=== PATIENT | female | born 1945 | race Caucasian/White ===

== ENCOUNTER 2016-05-22 11:40 | Emergency (ER) | payer MEDICARE, BC ==
[~2016-05-22] VITALS: Ht 160 cm; Wt 84.1 kg
[~2016-05-22 11:40] MED LIST: ALBU6.7H INH; CHOL100055; FLUT16SP EA NOSTRIL; FLUT1DIS3 ORAL INH; FLUT1DIS31 INH; LEVO125T9 PO; LUTE20CA12; MAGN400C PO; MONT10TA25 PO; PRED50TA PO; SELE200T27; SULF1TAB42 PO
[2016-05-22 11:43] VITALS: Ht 160 cm; Wt 84.1 kg
--- OUTSIDE RECORDS SUMMARY | 2016-05-22 11:45 | XMS REPORT | Continuity of Care Document ---
Author Author [facility] Organization [facility] Address Unknown Phone Unavailable Support Name Relationship Address Phone DORA HILL DO Caregiver [facility] [address] [place] [address] [phone] ABBY HUTCHISON MD Caregiver [address] [place] [address] [place] [phone] [address] Next Of Kin [address] [place] [address] Insurance Providers Payer Name Policy Number Subscriber Name Relationship Medicare [id number] Erma Koenig 18 Self [facility] [id number] Erma Koenig 18 Self Advance Directives Directive Response Recorded Date/Time Advanced Directives Type None 04/22/14 1:12pm Problems Medical Problems Problem Onset Date Status Asthma not otherwise specified with (Acute) Exacerbation 07/16/2010 Active ASTHMA NOS W (AC) EXAC Unknown Active Gastroesophageal reflux disease 07/16/2010 Active Gastroesophageal reflux disease Unknown Active Benign essential hypertension 07/16/2010 Active Benign essential hypertension Unknown Active Chronic back pain 07/16/2010 Active Chronic back pain Unknown Active Severe persistent asthma 07/16/2010 Active Severe persistent asthma Unknown Active Acute meniscal tear of right knee 09/18/2013 Active Gout flare Unknown Active Gout flare Unknown Active Medications Medication Dose Route Sig Days/Qty Instructions Order Date Discontinued Date Status Albuterol 17 Gm IH NEEDED 10/28/08 07/15/10 Discontinued Propoxyphene/Acetaminophen 1 Tab PO DAILY 10/28/08 07/15/10 Discontinued Omeprazole Magnesium 20 Mg PO DAILY 10/28/08 07/15/10 Discontinued Acetaminophen 325 Mg PO NEEDED 10/28/08 07/15/10 Discontinued Enalapril Maleate 20 Mg PO DAILY 10/28/08 07/15/10 Discontinued Enalapril Maleate 10 Mg PO DAILY 07/15/10 Active Albuterol 17 Gm IH NEEDED 07/15/10 Active Cyclobenzaprine Hcl 10 Mg PO 07/15/10 10/30/12 Discontinued Ketorolac Tromethamine 15 Mg IJ 07/16/10 10/30/12 Discontinued Zolmitriptan 2.5 Mg PO NEEDED 07/16/10 10/30/12 Discontinued Lactulose 10 G PO 07/16/10 10/30/12 Discontinued Famotidine 10 Mg PO DAILY 07/16/10 10/30/12 Discontinued Calcium Carbonate/Simethicone 1 Tab.chew PO NEEDED 07/16/1010/30 Discontinued Suezc-A-Kykwzppndzpon 1 Tab PO NEEDED 07/16/10 10/30/12 Discontinued Salmeterol Xinafoate/Fluticasone DAILY 10/30/12 Active Levothyroxine Sodium 125 Mcg PO DAILY 30 Qty 09/16/13 Active Tramadol Hcl 50-100 Mg PO EVERY 4-6 HOURS PRN BREAKTHROUGH PAIN 60 Qty 09/18/13 Active Colchicine 0 PO as directed 3 Qty 04/22/14 04/22/14 Discontinued Colchicine 0 PO as directed 3 Qty Take 2 tabs by mouth x1 when you receive them, one tab by 04/22/14 Active Social History Social History Problem Response Recorded Date/Time Chewing Tobacco Status No 11/13/2012 2:40pm Hx Substance Use No 04/22/2014 1:12pm Hx Alcohol Use Y VERY OCCASIONALY 04/22/2014 1:12pm Has the pt used tobacco in the last 12 months No 09/17/2013 4:23pm Query Response Start Date Stop Date Smoking Status Never smoker Hospital Discharge Instructions No hospital discharge instructions. Plan of Care No plan of care. Functional Status Query Response Date Recorded Physical Hygiene Self April 22, 2014 1:12pm Disabilities None April 22, 2014 1:12pm Devices Used None April 22, 2014 1:12pm Dressing Self April 22, 2014 1:12pm Ambulation Self April 22, 2014 1:12pm Diet Self April 22, 2014 1:12pm Mental Status Alert Oriented April 22, 2014 1:12pm Disabilities None April 22, 2014 1:12pm Devices Used None April 22, 2014 1:12pm Physical Hygiene Self April 22, 2014 1:12pm Dressing Self April 22, 2014 1:12pm Ambulation Self April 22, 2014 1:12pm Diet Self April 22, 2014 1:12pm Allergies, Adverse Reactions, Alerts Allergen Type Severity Reaction Status Last Updated meperidine HCl Adverse Reaction Unknown CONFUSION Active 04/22/14 hydrocodone bit Adverse Reaction Unknown HALLUCINATIONS Active 04/22/14 metoclopramide HCl Adverse Reaction Unknown IRRITABLITY Active 04/22/14 Iodine Allergy Severe SWELLING Active 04/22/14 Codeine Adverse Reaction Unknown NAUSEA,STOMACH ACHE Active 04/22/14 Sumatriptan Allergy Unknown RACING HEART Active 04/22/14 Hydromorphone Adverse Reaction Intermediate NAUSEA & VOMITING Active 04/22 shellfish derived Allergy Severe SWELLING Active 04/22/14 Immunizations Name Given Type Hx Influenza Vaccination Y FALL 2011 Historical Hx Pneumococcal Vaccination Y FALL 2011 Historical Hx Tetanus, Diptheria, Pertussis NO OPEN SKIN Historical Hx Influenza Vaccination Y FALL 2011 Historical Hx Tetanus, Diptheria, Pertussis NO OPEN SKIN Historical Vital Signs Acute Vital Signs Vital Response Date/Time Temperature (Fahrenheit) 97.2 deg F (96.8 - 99.1) Temperature (Calculated Celsius) 36.42273 degrees C (36.0 - 37.3) Pulse Rate (adult) 81 bpm (60 - 100) Respiratory Rate 16 breaths/min (10 - 20) O2 Sat by Pulse Oximetry 94 % (90 - 100) Blood Pressure 135/80 mm Hg Height 5 ft 3.5 in Weight 180 lb Body Mass Index 31.0 kg/m^2 Results Test Source Date Result Interp. Ref. Range Comments Lipase April 22, 2014 1:49pm 247 U/L N 23-300 Alanine Aminotransferase (ALT/SGPT) April 22, 2014 1:49pm 21 U/L N 9- 52 Albumin April 22, 2014 1:49pm 4.8 G/DL N 3.5-5.0 Albumin/Globulin Ratio April 22, 2014 1:49pm 1.5 RATIO N 1.1-2.2 Alkaline Phosphatase April 22, 2014 1:49pm 84 U/L N 38-126 Anion Gap April 22, 2014 1:49pm 12 MEQ/L N 5-15 Aspartate Amino Transf (AST/SGOT) April 22, 2014 1:49pm 25 U/L N 14- 36 B-Type Natriuretic Peptide July 15, 2010 10:28am < 15 PG/ML L 15-100 BUN/Creatinine Ratio April 22, 2014 1:49pm 26 RATIO N 6-26 Basophils # (Auto) April 22, 2014 1:49pm 0.0 T/MM3 N 0-0.2 Basophils (%) (Auto) April 22, 2014 1:49pm 0.3 % N 0-2 Blood Urea Nitrogen April 22, 2014 1:49pm 23.0 MG/DL H 7-17 Body Fluid Basophils September 30, 2013 2:00pm 0 % - Body Fluid Color September 30, 2013 2:00pm Red - Body Fluid Crystal Appearance September 30, 2013 2:00pm Bloody H - Body Fluid Crystal Color September 30, 2013 2:00pm Red H - Body Fluid Crystal Quantity September 30, 2013 2:00pm None - Body Fluid Eosinophils September 30, 2013 2:00pm 5 % - Body Fluid Lymphocytes September 30, 2013 2:00pm 65 % - Body Fluid Monocytes September 30, 2013 2:00pm 2 % - Body Fluid Neutrophils September 30, 2013 2:00pm 28 % - Body Fluid Other Cells (%) September 30, 2013 2:00pm 0 % - Body Fluid RBC September 30, 2013 2:00pm 79280 /MM3 - Body Fluid Total Nucleated Cells September 30, 2013 2:00pm 251 /MM3 - Body Fluid Turbidity September 30, 2013 2:00pm Cloudy - Body Fluid Type September 30, 2013 2:00pm Synovial fluid - Calcium Level April 22, 2014 1:49pm 9.9 MG/DL N 8.4-10.2 Calculated Osmolality April 22, 2014 1:49pm 273 MOSM/KG N 261-280 Carbon Dioxide Level April 22, 2014 1:49pm 27 MEQ/L N 22-30 Chemistry Specimen Hemolysis April 22, 2014 1:49pm < 15 0-25 0-25 : No Hemolysis.26-70: Slight Hemolysis - can falsely elevate K and Urine Protein. 71-285: Moderate Hemolysis - can falsely elevate K, Troponin I, CA 19-9, PTH, CSF GLucose, and Urine Protein, and can falsely decrease Phenytoin. 286-999: Gross Hemolysis - can falsely elevate K, Troponin I, CA 19-9, PTH, CSF Glucose, and Urine Protine, and can falsely decrease Phenytoin. Recommend specimen recollection. Chloride Level April 22, 2014 1:49pm 101 MEQ/L N 98-107 Cholesterol Level August 24, 2010 8:20am 169 MG/DL N 132-199 Cholesterol/HDL Ratio August 24, 2010 8:20am 3.0 RATIO N 0-4.0 Creatinine April 22, 2014 1:49pm 0.9 MG/DL N 0.7-1.2 Eosinophils # (Auto) April 22, 2014 1:49pm 0.8 T/MM3 H 0-0.5 Eosinophils (%) (Auto) April 22, 2014 1:49pm 9.4 % H 0-4 Globulin April 22, 2014 1:49pm 3.1 G/DL N 2.4-3.6 Glomerular Filtration Rate Calc April 22, 2014 1:49pm 62 - Glucose Level April 22, 2014 1:49pm 95 MG/DL N 65-110 HDL Cholesterol Direct August 24, 2010 8:20am 56 MG/DL N 40-60 Hematocrit April 22, 2014 1:49pm 41.9 % N 36-46 Hemoglobin April 22, 2014 1:49pm 13.5 GM/DL N 12-16 Icterus Index April 22, 2014 1:49pm < 2 0-7 Immature Granulocyte # (Auto) April 22, 2014 1:49pm 0.02 T/MM3 N 0.00 -0.03 Immature Granulocyte % (Auto) April 22, 2014 1:49pm 0.2 % N 0.0-0.5 LDL Cholesterol, Calculated August 24, 2010 8:20am 95.4 N 66-159 Lab Scanned Report September 30, 2013 8:58pm LAB TEST FORM REQUEST - Lymphocytes # (Auto) April 22, 2014 1:49pm 1.9 T/MM3 N 1-4.8 Lymphocytes (%) (Auto) April 22, 2014 1:49pm 21.4 % L 23-45 Mean Corpuscular Hemoglobin April 22, 2014 1:49pm 31.6 UUG N 26-34 Mean Corpuscular Hemoglobin Concent April 22, 2014 1:49pm 32.2 GM/DL N 31-37 Mean Corpuscular Volume April 22, 2014 1:49pm 98.1 UM3 N 80-100 Mean Platelet Volume April 22, 2014 1:49pm 9.0 UM3 L 9.4-12.4 Monocytes # (Auto) April 22, 2014 1:49pm 0.7 T/MM3 N 0-0.8 Monocytes (%) (Auto) April 22, 2014 1:49pm 7.6 % N 0-9.0 Neutrophils # (Auto) April 22, 2014 1:49pm 5.4 T/MM3 N 1.8-7.7 Neutrophils (%) (Auto) April 22, 2014 1:49pm 61.1 % N 33-66 Platelet Count April 22, 2014 1:49pm 283 T/MM3 N 130-400 Potassium Level April 22, 2014 1:49pm 4.7 MEQ/L N 3.6-5 RDW Standard Deviation April 22, 2014 1:49pm 43.0 FL N 36.9-50.2 Red Blood Count April 22, 2014 1:49pm 4.27 M/MM3 N 4.00-5.20 Sodium Level April 22, 2014 1:49pm 140 MEQ/L N 134-144 Synovial Fluid Source September 30, 2013 2:00pm - - Crystal Exam, Synovial Fluid performed at [facility], [address],[place] [address] Cylinder Worker Vargas Card MD Total Bilirubin April 22, 2014 1:49pm 0.30 MG/DL N 0.20-1.30 Total Protein April 22, 2014 1:49pm 7.9 G/DL N 6.3-8.2 Triglycerides Level August 24, 2010 8:20am 88 MG/DL N 35-135 Troponin I April 22, 2014 1:49pm < 0.012 ng/ml 0-0.12 Turbidity April 22, 2014 1:49pm < 20 0-20 Uric Acid April 22, 2014 1:49pm 5.5 MG/DL N 2.5-7.5 Urine Bacteria July 16, 2010 8:00am Trace H - Has specimen been collected/obtained? Y Urine Bilirubin July 16, 2010 8:00am Negative - Has specimen been collected/obtained? Y Urine Blood July 16, 2010 8:00am 2+ H - Has specimen been collected/ obtained? Y Urine Collection Type July 16, 2010 8:00am Voided - Has specimen been collected/obtained? Y Urine Color July 16, 2010 8:00am Yellow - Has specimen been collected/ obtained? Y Urine Glucose (UA) July 16, 2010 8:00am 3+ H - Has specimen been collected/obtained? Y Urine Ketones July 16, 2010 8:00am Negative - Has specimen been collected/obtained? Y Urine Leukocyte Esterase July 16, 2010 8:00am Negative - Has specimen been collected/obtained? Y Urine Microscopic Not Indicated July 15, 2010 11:30am Not indicated - Has specimen been collected/obtained? Y Urine Nitrite July 16, 2010 8:00am Negative - Has specimen been collected/obtained? Y Urine Protein July 16, 2010 8:00am Negative - Has specimen been collected/obtained? Y Urine RBC July 16, 2010 8:00am 1-3 /HPF - Has specimen been collected/ obtained? Y Urine Specific Trumann July 16, 2010 8:00am 1.015 - Has specimen been collected/obtained? Y Urine Turbidity July 16, 2010 8:00am Clear - Has specimen been collected/obtained? Y Urine Urobilinogen July 16, 2010 8:00am Normal EU/DL - Has specimen been collected/obtained? Y Urine WBC July 16, 2010 8:00am 0-1 /HPF - Has specimen been collected/ obtained? Y Urine pH July 16, 2010 8:00am 5.0 - Has specimen been collected/ obtained? Y VLDL Cholesterol August 24, 2010 8:20am 17.6 MG/DL N 0-28 White Blood Count April 22, 2014 1:49pm 8.9 T/MM3 N 4.5-11.0 Blood Culture Blood July 15, 2010 11:05am NO GROWTH AFTER 5 DAYS Gram Stain Synovial Fluid-Right Knee September 30, 2013 2:00pm Throat Culture Throat May 06, 2013 4:50pm Name: ERMA KOENIG Unit #: [id number] : [id number] Sex: F Loc / Svc: ED DOS: 04/22/14 Signed Report #: [id number] DIAGNOSTIC IMAGING REPORT TYPE OF EXAM: RIBS LEFT WITH AP CHEST Dictated By: DAVE AMARO DO Indication: ITS.REASON: 2 years of left costochondral cartilage pain RIBS LEFT WITH AP CHEST: Comparison: One view chest 07/16/2010 Findings: A total of four views of the left ribs including a frontal chest radiograph demonstrates no evidence of fracture involving the left ribs. There is no osteolytic or sclerotic destructive lesion involving the left ribs. No underlying pneumothorax or pleural fluid or pleural based mass identified. Of note are degenerative changes of the cervical and thoracic spine. 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 Impression: Essentially negative left rib series. Specifically, no traumatic variation involving the left ribs. . Procedures No known history of procedures. Encounters Encounter Location Date/Time Departed Emergency Room [facility] 04/22/14 12:56pm Recent Diagnosis
--- OUTSIDE RECORDS SUMMARY | 2016-05-22 11:45 | XMS REPORT | Continuity of Care Document ---
Author Author [facility] Organization [facility] Address Unknown Phone Unavailable Support Name Relationship Address Phone JADEN MONTE Andriy B[employer] SHOP ESTIMATOR Caregiver [address] [place] [phone] Unavailable DORA HILL DO Caregiver [address] [place] [address] Unavailable [facility]LE[facility] [place] Next Of Kin [address] [place] [address] Insurance Providers Guarantor Emra Koenig Address [address] [place] [phone] Email DENIED/NO EMAIL Payer Medicare Policy Number [id number] Subscriber's Name Erma Koenig Relationship 18 Self Effective Date 01 Payer [facility] Policy Number [id number] Subscriber's Name Erma Koenig Relationship 18 Self Group Number [id number] Chief Complaint and Reason for Visit Chief Complaint Cough,Fever,Flu,URI Reason for Visit Asthma with acute exacerbation Cellulitis of sidewall of nose Sinusitis, acute maxillary Problems Active Problems Medical Problem Onset Date Status ASTHMA NOS W (AC) EXAC Unknown Acute meniscal tear of right knee 09/18/2013 Acute Asthma not otherwise specified with (Acute) Exacerbation 07/16/2010 Acute Benign essential hypertension 07/16/2010 Chronic Benign essential hypertension Unknown Chest pain Unknown Acute Chronic back pain 07/16/2010 Chronic Chronic back pain Unknown Esophageal spasm Unknown Acute GERD (gastroesophageal reflux disease) Unknown Acute Gastroesophageal reflux disease 07/16/2010 Acute Gastroesophageal reflux disease Unknown Gout flare Unknown Acute Gout flare Unknown Acute Severe persistent asthma 07/16/2010 Chronic Severe persistent asthma Unknown Past Problems Medical Problem Onset Date Asthma with acute exacerbation Unknown Cellulitis of sidewall of nose Unknown Sinusitis, acute maxillary Unknown Medications Current Home Medications Medication Dose Units Route Directions Days Qty Instructions Start Date Albuterol Sulfate (Proventil Hfa 90 Mcg/Actuation) 200 Puff/6.7 G Inha 1 Puff Inhalation Every 4 Hours as needed for Shortness Of Air/Wheezing 04/08/16 Cholecalciferol (Vitamin D3) (Vitamin D) 1,000 Unit Capsule 04/08/16 Fluticasone Propionate (Fluticasone Prop 50 Mcg/Actuation Nasal Plano) 120 Plano/16 G Plano 2 Plano Each Nostril Daily 21 Days [address] Mihai Alvarado [employer] [facility] [address] [facility] [phone] 04/08/16 Fluticasone/Salmeterol (Advair 250-50 Diskus) 1 Disk W/Dev Inhaler 1 Puff Oral Inhalation Resp.tx Twice A Day for Shortness Of Air/Wheezing 06/19 Levothyroxine Sodium 125 Mcg Tablet 125 Mcg Oral Daily 09/16/13 Lutein 20 Mg Capsule 04/08/16 Magnesium Oxide (Magnesium) 400 Mg Capsule 1 Cap Oral Twice A Day 180 Capsule 04/08/16 Montelukast Sodium 10 Mg Tablet 10 Mg Oral Daily 03/21/15 Prednisone 50 Mg Tablet 50 Mg Oral Give With Breakfast 5 Days 5 Tablet Take 1 tablet, by mouth, once a day with breakfast. Supervising physician Dr. Mihai Alvarado [facility] [employer] [address] [facility] [phone] 04/08/16 Salmeterol Xinafoate/Fluticasone (Advair 250-50 Diskus) 1 Each Disk.w.dev 1 Puff Inhalation Daily 10/30/12 Selenomethionine (Selenium) 200 Mcg Tablet 04/08/16 Sulfamethoxazole/Trimethoprim (Bactrim Ds Tablet) 1 Each Tablet 1 Tab Oral Twice A Day 10 Days 20 Tablet Take 1 tablet, by mouth, 2 times a day. Supervising physician Dr. Mihai Alvarado [facility] [address] [facility] [phone] 04/08/16 Past Home Medications Medication Directions Ordered Status Acetaminophen (Tylenol) 325 Mg Tablet, 325 Mg Oral As Needed 10/28/08 Discontinued Albuterol 17 Gm Aerosol, 17 Gm Inhalation As Needed 10/28/08 Discontinued Zpngk-T-Oqfgzdkklnfnr (Beano) 1 Tab Tablet, 1 Tab Oral As Needed 07/16/10 Discontinued Calcium Carbonate/Simethicone (Tums Anti-Gas/Antacid Tab) 1 Tab.chew Tab.chew, 1 Tab.chew Oral As Needed 07/16/10 Discontinued Colchicine 0.6 Mg Tablet, 0 Oral As Directed 04/22/14 Discontinued Cyclobenzaprine Hcl (Flexeril) 10 Mg Tablet, 10 Mg Oral 07/15/10 Discontinued Enalapril Maleate (Vasotec) 20 Mg Tablet, 20 Mg Oral Daily 10/28/08 Discontinued Famotidine (Acid Controller) 10 Mg Tablet, 10 Mg Oral Daily 07/16/10 Discontinued Ketorolac Tromethamine (Toradol) 15 Mg/Ml Vial, 15 Mg Injection 07/16/10 Discontinued Lactulose (Enulose) 10 G/15 Ml Solution, 10 G Oral 07/16/10 Discontinued Omeprazole Magnesium (Prilosec Otc) 20 Mg Tablet.dr, 20 Mg Oral Daily Discontinued Propoxyphene/Acetaminophen (Darvocet-N 100 Tablet) 1 Tab Tablet, 1 Tab Oral Daily 10/28/08 Discontinued Zolmitriptan (Zomig) 2.5 Mg Tablet, 2.5 Mg Oral As Needed 07/16/10 Discontinued Social History Social History Problem Response Recorded Date/Time Onset Date Status Chewing Tobacco Status No 11/13/2012 2:40pm Not Applicable Not Applicable Hx Substance Use No 03/21/2015 7:41pm Not Applicable Not Applicable Hx Alcohol Use Y VERY OCCASIONALY 03/21/2015 7:41pm Not Applicable Not Applicable Has the pt used tobacco in the last 12 months No 09/17/2013 4:23pm Not Applicable Not Applicable Tobacco Usage none 04/23/2014 9:37pm Not Applicable Not Applicable Hospital Discharge Instructions No hospital discharge instructions. Plan of Care Discharge Date 04/08/16 10:45am Disposition 01 DISCHARGED HOME, SELF-CARE Condition at Discharge Stable Instructions/Education Provided Asthma (ED) Cellulitis (DC) Sinusitis (ED) Prescriptions See Medication Section Referrals DORA HILL DO Address: [address] [place] [phone] Additional Instructions/Education Take Bactrim twice daily as directed. Use prednisone daily in the morning as directed. Begin fluticasone nasal spray as directed. Use her inhalers as previously directed. Follow with primary care provider. Functional Status No functional status results. Allergies, Adverse Reactions, Alerts Allergen Type Severity Reaction Status Last Updated meperidine HCl Adverse Reaction Unknown CONFUSION Active 03/21/15 hydrocodone bit Adverse Reaction Unknown HALLUCINATIONS Active 03/21/15 metoclopramide HCl Adverse Reaction Unknown IRRITABLITY Active 03/21/15 Iodine Allergy Severe SWELLING Active 03/21/15 Codeine Adverse Reaction Unknown NAUSEA,STOMACH ACHE Active 03/21/15 Sumatriptan Allergy Unknown RACING HEART Active 03/21/15 Hydromorphone Adverse Reaction Intermediate NAUSEA & VOMITING Active 03/21 shellfish derived Allergy Severe SWELLING Active 03/21/15 Immunizations Query Response on File Recorded Date/Time Hx Influenza Vaccination Y fall 201104/22/14 1:12pm Hx Pneumococcal Vaccination Y fall 201104/22/14 1:12pm Hx Tetanus, Diptheria, Pertussis NO OPEN SKIN 04/22/14 1:12pm Hx Influenza Vaccination Y fall 201104/22/14 1:12pm Hx Tetanus, Diptheria, Pertussis NO OPEN SKIN 04/22/14 1:12pm Influenza Vaccine Hx 12/201404/08/16 10:16am Vital Signs Acute Vital Signs Vital Response Date/Time Temperature (Fahrenheit) 97.2 deg F (96.8 - 99.1) 04/08/2016 10:17am Temperature (Calculated Celsius) 36.73592 degrees C (36.0 - 37.3) 04/08/2016 10:17am Pulse Rate (adult) 86 bpm (60 - 100) 04/08/2016 10:17am Respiratory Rate 20 breaths/min (10 - 20) 04/08/2016 10:17am Blood Pressure 146/92 mm Hg 04/08/2016 10:17am Height (Inches) 63.00 inches 04/08/2016 10:17am Weight (Kilograms) 84.600 kg 04/08/2016 10:17am Body Mass Index (BMI) 33.0 04/08/2016 10:17am Results No known relevant diagnostic tests, laboratory data and/or discharge summary. Procedures No known history of procedures. Encounters Encounter Location Arrival/Admit Date Discharge/Depart Date Attending Provider Departed Emergency Room [facility] 04/08/16 10:07am 04/08/16 10: 45am JADEN MONTE APRN Recent Diagnosis
--- OUTSIDE RECORDS SUMMARY | 2016-05-22 11:45 | XMS REPORT | Continuity of Care Document ---
Author Author [facility] Organization [facility] Address Unknown Phone Unavailable Support Name Relationship Address Phone YELENA GLEZ MD Caregiver [facility] [address] [place] [address] DORA HILL DO Caregiver [facility] [address] [place] [phone] CELE[facility] [place] Next Of [address] [place] [address] Insurance Providers Payer Name Policy Number Subscriber Name Relationship Medicare [id number] Erma Koenig 18 Self [facility] [id number] Erma Koenig 18 Self Advance Directives Directive Response Recorded Date/Time Advanced Directives Type None 09/17/13 4:22pm Ordered Resuscitation Status Full Code 09/16/13 6:33pm Problems Medical Problems Problem Onset Date Status [...] meniscal tear of right knee 09/18/2013 Active Medications Medication Dose Route Sig Days/Qty [...] Carbonate/Simethicone 1 Tab.chew PO NEEDED 07/16/1010/30 Discontinued Wuatg-M-Wlbrsjgcbekse 1 Tab PO NEEDED 07/16/10 10/30/12 Discontinued Salmeterol Xinafoate/Fluticasone DAILY 10/30/12 Active Levothyroxine Sodium 125 Mcg PO DAILY 30 Qty 09/16/13 Active Tramadol Hcl 50-100 Mg PO EVERY 4-6 HOURS PRN BREAKTHROUGH PAIN 60 Qty 09/18/13 Active Social History Social History Problem Response Recorded Date/Time Smoking Status Former smoker 09/17/2013 4:23pm Chewing Tobacco Status No 11/13/2012 2:40pm Hx Substance Use No 11/13/2012 2:40pm Hx Alcohol Use Y OCCASIONALY 11/13/2012 2:40pm Has the pt used tobacco in the last 12 months No 09/17/2013 4:23pm Query Response Start Date Stop Date Smoking Status Former smoker Hospital Discharge Instructions No hospital discharge instructions. Plan of Care No plan of care. Functional Status Query Response Date Recorded Physical Hygiene Self September 18, 2013 10:20am Disabilities None September 18, 2013 10:20am Devices Used Crutches September 18, 2013 10:20am Dressing Self September 18, 2013 10:20am Ambulation Self September 18, 2013 10:20am Diet Self September 18, 2013 10:20am Mental Status Alert September 18, 2013 10:20am Disabilities None September 18, 2013 10:20am Devices Used Crutches September 18, 2013 10:20am Physical Hygiene Self September 18, 2013 10:20am Dressing Self September 18, 2013 10:20am Ambulation Self September 18, 2013 10:20am Diet Self September 18, 2013 10:20am Allergies, Adverse Reactions, Alerts Allergen Type Severity Reaction Status Last Updated meperidine HCl Adverse Reaction Unknown CONFUSION Active 09/17/13 hydrocodone bit Adverse Reaction Unknown HALLUCINATIONS Active 09/17/13 metoclopramide HCl Adverse Reaction Unknown IRRITABLITY Active 09/17/13 Iodine Allergy Severe SWELLING Active 09/17/13 Codeine Adverse Reaction Unknown NAUSEA,STOMACH ACHE Active 09/17/13 Sumatriptan Allergy Unknown RACING HEART Active 09/17/13 Hydromorphone Adverse Reaction Intermediate NAUSEA & VOMITING Active 09/17 shellfish derived Allergy Severe SWELLING Active 09/17/13 Immunizations Name Given Type Hx Influenza Vaccination Y FALL 2011 Historical Hx Pneumococcal Vaccination Y FALL 2011 Historical Hx Influenza Vaccination fall Historical Vital Signs Acute Vital Signs Vital Response Date/Time Temperature (Fahrenheit) 98.0 deg F (96.8 - 99.1) Temperature (Calculated Celsius) 36.34255 degrees C (36.0 - 37.3) Temperature Source Oral Pulse Rate (adult) 82 bpm (60 - 100) O2 Sat by Pulse Oximetry 95 % (90 - 100) Height 5 ft 3 in Weight 182 lb Body Mass Index 32.0 kg/m^2 Results Test Source Date Result Interp. Ref. Range Comments Alanine Aminotransferase (ALT/SGPT) September 17, 2013 6:30am 25 U/L N 9-52 Albumin September 17, 2013 6:30am 4.2 G/DL N 3.5-5.0 Albumin/Globulin Ratio September 17, 2013 6:30am 1.5 RATIO N 1.1-2.2 Alkaline Phosphatase September 17, 2013 6:30am 66 U/L N 38-126 Anion Gap September 17, 2013 6:30am 8 MEQ/L N 5-15 Aspartate Amino Transf (AST/SGOT) September 17, 2013 6:30am 24 U/L N 14-36 B-Type Natriuretic Peptide July 15, 2010 10:28am < 15 PG/ML L 15-100 BUN/Creatinine Ratio September 17, 2013 6:30am 34 RATIO H 6-26 Basophils # (Auto) September 17, 2013 6:30am 0.0 T/MM3 N 0-0.2 COMMENT NSC WILL CALL Basophils (%) (Auto) September 17, 2013 6:30am 0.4 % N 0-2 COMMENT NSC WILL CALL Blood Urea Nitrogen September 17, 2013 6:30am 24.0 MG/DL H 7-17 Calcium Level September 17, 2013 6:30am 9.4 MG/DL N 8.4-10.2 Calculated Osmolality September 17, 2013 6:30am 272 MOSM/KG N 261-280 Carbon Dioxide Level September 17, 2013 6:30am 28 MEQ/L N 22-30 Chemistry Specimen Hemolysis September 17, 2013 6:30am 24 N 0-25 0-25: No Hemolysis.26-70: Slight Hemolysis - can falsely elevate K and Urine Protein. 71-285: Moderate Hemolysis - can falsely elevate K, Troponin I, CA 19-9, PTH, CSF GLucose, and Urine Protein, and can falsely decrease Phenytoin. 286-999: Gross Hemolysis - can falsely elevate K, Troponin I, CA 19-9, PTH, CSF Glucose, and Urine Protine, and can falsely decrease Phenytoin. Recommend specimen recollection. Chloride Level September 17, 2013 6:30am 103 MEQ/L N 98-107 Cholesterol Level August 24, 2010 8:20am 169 MG/DL N 132-199 Cholesterol/HDL Ratio August 24, 2010 8:20am 3.0 RATIO N 0-4.0 Creatinine September 17, 2013 6:30am 0.7 MG/DL N 0.7-1.2 Eosinophils # (Auto) September 17, 2013 6:30am 0.3 T/MM3 N 0-0.5 COMMENT NSC WILL CALL Eosinophils (%) (Auto) September 17, 2013 6:30am 6.0 % H 0-4 COMMENT NSC WILL CALL Globulin September 17, 2013 6:30am 2.8 G/DL N 2.4-3.6 Glomerular Filtration Rate Calc September 17, 2013 6:30am 83 - Glucose Level September 17, 2013 6:30am 91 MG/DL N 65-110 HDL Cholesterol Direct August 24, 2010 8:20am 56 MG/DL N 40-60 Hematocrit September 17, 2013 6:30am 39.9 % N 36-46 COMMENT NSC WILL CALL Hemoglobin September 17, 2013 6:30am 13.0 GM/DL N 12-16 COMMENT NSC WILL CALL Icterus Index September 17, 2013 6:30am < 2 0-7 Immature Granulocyte # (Auto) September 17, 2013 6:30am 0.02 T/MM3 N 0.00- 0.03 COMMENT NSC WILL CALL Immature Granulocyte % (Auto) September 17, 2013 6:30am 0.4 % N 0.0-0.5 COMMENT NSC WILL CALL LDL Cholesterol, Calculated August 24, 2010 8:20am 95.4 N 66-159 Lab Scanned Report May 06, 2013 8:45pm LAB TEST FORM REQUEST [id number] - Lymphocytes # (Auto) September 17, 2013 6:30am 1.7 T/MM3 N 1-4.8 COMMENT NSC WILL CALL Lymphocytes (%) (Auto) September 17, 2013 6:30am 30.3 % N 23-45 COMMENT NSC WILL CALL Mean Corpuscular Hemoglobin September 17, 2013 6:30am 31.9 UUG N 26-34 COMMENT NSC WILL CALL Mean Corpuscular Hemoglobin Concent September 17, 2013 6:30am 32.6 GM/DL N 31 -37 COMMENT NSC WILL CALL Mean Corpuscular Volume September 17, 2013 6:30am 98.0 UM3 N 80-100 COMMENT NSC WILL CALL Mean Platelet Volume September 17, 2013 6:30am 9.2 UM3 L 9.4-12.4 COMMENT NSC WILL CALL Monocytes # (Auto) September 17, 2013 6:30am 0.6 T/MM3 N 0-0.8 COMMENT NSC WILL CALL Monocytes (%) (Auto) September 17, 2013 6:30am 10.1 % H 0-9.0 COMMENT NSC WILL CALL Neutrophils # (Auto) September 17, 2013 6:30am 3.0 T/MM3 N 1.8-7.7 COMMENT NSC WILL CALL Neutrophils (%) (Auto) September 17, 2013 6:30am 52.8 % N 33-66 COMMENT NSC WILL CALL Platelet Count September 17, 2013 6:30am 264 T/MM3 N 130-400 COMMENT NSC WILL CALL Potassium Level September 17, 2013 6:30am 4.1 MEQ/L N 3.6-5 RDW Standard Deviation September 17, 2013 6:30am 43.0 FL N 36.9-50.2 COMMENT NSC WILL CALL Red Blood Count September 17, 2013 6:30am 4.07 M/MM3 N 4.00-5.20 COMMENT NSC WILL CALL Sodium Level September 17, 2013 6:30am 139 MEQ/L N 134-144 Total Bilirubin September 17, 2013 6:30am 0.40 MG/DL N 0.20-1.30 Total Protein September 17, 2013 6:30am 7.0 G/DL N 6.3-8.2 Triglycerides Level August 24, 2010 8:20am 88 MG/DL N 35-135 Troponin I July 15, 2010 10:28am < 0.012 ng/ml 0-0.12 Turbidity September 17, 2013 6:30am < 20 0-20 Urine Bacteria July 16, 2010 8:00am Trace [...] specimen been collected/ obtained? Y Urine Specific [place] July 16, 2010 8:00am 1.015 - Has [...] 17.6 MG/DL N 0-28 White Blood Count September 17, 2013 6:30am 5.7 T/MM3 N 4.5-11.0 COMMENT NSC WILL CALL Blood Culture Blood July 15, 2010 11:05am NO GROWTH AFTER 5 DAYS Throat Culture Throat May 06, 2013 4:50pm Procedures Procedure Status Date Provider(s) Knee arthroscopy completed 09/17/13 YELENA GLEZ MD Encounters Encounter Location Date/Time Registered Clinic [facility] 09/04/13 11:18am
--- NOTE | 2016-05-22 12:20 | ERPDOC ---
Departure Disposition Decision Date: May 22, 2016 Disposition Decision Time: 14:25 Disposition: 01 DISCHARGED HOME, SELF-CARE Impression Impression Impression: Primary Impression: Bronchitis Severity: Moderate Condition: Improved Seen By: Mid-level only Referrals: DORA HILL DO (Family) Patient Instructions: Acute Bronchitis (ED) Problems/Meds/Labs Reviewed?: Yes Medications reviewed and manag: Yes Additional Instructions: You chest x-ray was normal and your labs did not show an infection. Continue prednisone as ordered by Dr. Hill. Take benzonatate 200mg every 8 hours for cough. Follow with Dr. Hill if not improving in the next 3-5 days. Stay well hydrated, drink 8 glasses of water daily. Follow treatment plan. Follow up care ordered?: Yes Mental Status: Alert, Oriented Scripts Benzonatate (Benzonatate) 200 Mg Capsule 1 CAP PO TID Y for COUGH for 7 Days, #21 CAP DO NOT BITE, CHEW, OR CRUSH Prov: JERRY BELCHER APRN 05/22/16 HPI - Cough/URI General Chief Complaint: Cough,Fever,Flu,URI Stated Complaint: SOA, FEELS LIKE SOMETHING STUCK IN THROAT Time Seen by Provider: 12:10 Source: patient HPI - Cough/URI Initial Comments 71-year-old female presents to ER with history of cough for past 10 days. Patient states that symptoms started out like a common cold, runny nose sinus congestion. Says the cough is in upper airways. Has lost her voice. Continued to cough so saw her PCP 3 days ago and started on steroid which she states has not helped. Says it feels like she has something stuck in her throat when she starts coughing. Says she does bring up some phlegm that is green which began after starting the steroid. Patient requests blood work and chest x-ray. Patient has not taken her temperature so does not she's been running a fever. Admits intermittent shortness of breath. Denies chills, chest pain, nausea/ vomiting, abdominal pain. Associated Symptoms: cough, nasal congestion, nasal drainage, shortness of breath (intermittent), DENIES: chest pain/soreness, dizziness, earache, facial pain, fever/chills, headache, lightheadedness, muscle aches, sinus infection Allergies: Coded Allergies: iodine (Verified Allergy, Severe, SWELLING, 05/22/16) THROAT SWELLING shellfish derived (Verified Allergy, Severe, SWELLING, 05/22/16) THROAT SWELLING sumatriptan (Verified Allergy, Unknown, RACING HEART, 05/22/16) PER PCP HISTORY hydromorphone (Verified Adverse Reaction, Intermediate, NAUSEA & VOMITING , 05/22/16) codeine (Verified Adverse Reaction, Unknown, NAUSEA,STOMACH ACHE, 05/22/16) hydrocodone bit (Verified Adverse Reaction, Unknown, HALLUCINATIONS, ) meperidine HCl (Verified Adverse Reaction, Unknown, CONFUSION, 05/22/16) metoclopramide HCl (Verified Adverse Reaction, Unknown, IRRITABLITY, ) Past History Past Medical History Metabolic: hypertension, hypothyroidism Cardiac: DENIES: CHF, angina Respiratory: asthma GI: DENIES: ulcers Female: renal insufficiency Neurological: DENIES: seizures Musculoskeletal: DENIES: rheumatoid arthritis Psychological: DENIES: depression Surgical History General: appendix, hernia Reproductive/: hysterectomy, other (bladder sling) Family History Family PMH: FOUND: other (noncontribtory) Vaccines Hx Influenza Vaccination: Yes (FALL 2011) Hx Pneumococcal Vaccination: Yes (FALL 2011) Social History # of Years: 10 Second Hand Exposure: No Substance Use Type: does not use Alcohol Intake: a few times a week Review of Systems Constitutional Constitutional: DENIES: chills, dizziness, fever, weakness Eyes General: DENIES: erythema, exudate Lids/Accessories: DENIES: erythema, swelling ENMT Ears: DENIES: pain Sinuses: congestion, rhinorrhea Mouth/Throat: change in voice (loss of voice), DENIES: change in swallowing, painful swallowing, sore throat Cardiovascular Cardiac: DENIES: chest pain Rhythm/Rate: DENIES: palpitations Pulmonary Respiratory: cough, dyspnea, see HPI GI Upper Abdomen: DENIES: nausea, pain, vomiting Lower Abdomen: DENIES: diarrhea, pain General: DENIES: dysuria, pain Musculoskeletal General: DENIES: joint pain, pain, tenderness Integumentary Skin: DENIES: color change, itching, rash Neurological General: DENIES: ataxia, change in strength, numbness, paralysis/paresis, weakness Psychiatric Psychiatric: DENIES: anxiety, depression, nervousness Physical Exam General General Nourishment: well nourished, well developed, no acute distress Vitals and Pain First Documented Vital Signs Date Time Temp Pulse Resp B/P Pulse Ox O2 Delivery O2 Flow Rate FiO2 05/22/16 11:43 97.9 89 20 184/89 98 Room Air Weight: Kilograms: 84.100 Height (feet): 5 Height (inches): 3.00 Triage Pain Scale: Eyes (brief) Eyes Brief: found: EOMI, PERRL ENMT (brief) ENMT Brief: FOUND: TM clear, TM good light reflex, mucosa moist, NOT FOUND: nasal exudate, nasal swelling, pharnyx erythema ENMT Pharynx: NOT FOUND: displacement, posterior drainage, uvular deviation Neck (brief) Neck: FOUND: trachea midline, NOT FOUND: adenopathy, spasm, tenderness, thyromegaly Respiratory Inspection: NOT FOUND: accessory muscle use, tachypnea Auscultation: FOUND: wheezes (expiratory wheeze and left upper lobe that clears with cough, clear in other lobes bilaterally) Cardiovascular (brief) Cardiac: FOUND: regular rate, regular rhythm Capillary Refill: <2 sec Pulses: all distal extremities, equal, strong Abdomen (brief) Abdominal Brief: FOUND: bowel normo active x4, soft, NOT FOUND: distended, tender Musculoskeletal (brief) Musculoskeletal Brief: NOT FOUND: deformity, tenderness Integumentary (brief) Integumentary Brief: FOUND: dry, pink, warm Neurologic (brief) Neurological Brief: FOUND: CN w/o gross def to obs, motor-no gross deficits, sensory-no gross deficits Psychiatric (brief) Psychiatric Brief: FOUND: alert, normal affect, oriented Differential Diagnoses Differential Diagnoses Considering: Acute Bronchitis, Pneumonia, Sinusitis, URI, Viral Syndrome Progress Results/Orders Orders Procedure Category Date Status Time Cmp - Comprehensive LAB 05/22/16 Complete Metabolic 12:28 Cbc W/Auto LAB 05/22/16 Complete Diff-Reflex Manual 12:28 Chest, Pa & Lateral RAD 05/22/16 Resulted 12:28 Iv Lock (Ed Only) EDM 05/22/16 Transmitted 12:28 Albuterol/Ipratropium PHA 05/22/16 Complete (Duoneb) 12:30 Respiratory Panel, Pcr LAB 05/22/16 Complete 12:28 D-Dimer LAB 05/22/16 Complete Normal Saline (Ns) PHA 05/22/16 Complete 12:30 Ua, Dip Wreflex LAB 05/22/16 Complete [employer] Software Engineer 14:19 Lab Results Laboratory Tests Test 05/22/16 12:25 05/22/16 12:34 Urine Collection Type Voided-not cc-midstr Urine Color Yellow Urine Turbidity Clear Urine pH 6.0 Urine Specific [place] <=1.005 Urine Protein Negative Urine Glucose (UA) Negative Urine Ketones Negative Urine Blood Trace-lysed Urine Nitrite Negative Urine Bilirubin Negative Urine Urobilinogen 0.2EU/DL Urine Leukocyte Esterase Negative Urinalysis Comment Microscopic not ind. White Blood Count 7.8T/MM3 Red Blood Count 3.84M/MM3 Hemoglobin 12.5GM/DL Hematocrit 38.6% Mean Corpuscular Volume 100.5UM3 Mean Corpuscular Hemoglobin 32.6UUG Mean Corpuscular Hemoglobin Concent 32.4GM/DL RDW Standard Deviation 43.3FL Platelet Count 307T/MM3 Mean Platelet Volume 9.2UM3 Immature Granulocyte % (Auto) % Neutrophils (%) (Auto) % Lymphocytes (%) (Auto) % Monocytes (%) (Auto) % Eosinophils (%) (Auto) % Basophils (%) (Auto) % Absolute Immature Granulocyte (auto T/MM3 Absolute Neutrophils (auto) T/MM3 Absolute Lymphocytes (auto) T/MM3 Absolute Monocytes (auto) T/MM3 Absolute Eosinophils (auto) T/MM3 Absolute Basophils (auto) T/MM3 Neutrophils % (Manual) 92.0% Lymphocytes % (Manual) 4.0% Monocytes % (Manual) 4.0% Absolute Neutrophils (Manual) 7.2T/MM3 Lymphocytes # (Manual) 0.3T/MM3 Monocytes # (Manual) 0.3T/MM3 Red Cell Morphology Comment Normal D-Dimer < 150NG/ML Turbidity < 20 Sodium Level 140MEQ/L Potassium Level 4.3MEQ/L Chloride Level 105MEQ/L Carbon Dioxide Level 26MEQ/L Anion Gap 9MEQ/L Blood Urea Nitrogen 21.0MG/DL Creatinine 0.8MG/DL Glomerular Filtration Rate Calc 71 BUN/Creatinine Ratio 26RATIO Glucose Level 147MG/DL Calculated Osmolality 275MOSM/KG Calcium Level 9.7MG/DL Total Bilirubin 0.40MG/DL Icterus Index < 2 Aspartate Amino Transf (AST/SGOT) 26U/L Alanine Aminotransferase (ALT/SGPT) 35U/L Alkaline Phosphatase 71U/L Total Protein 7.4G/DL Albumin 4.4G/DL Globulin 3.0G/DL Albumin/Globulin Ratio 1.5RATIO Chemistry Specimen Hemolysis < 15 Adenovirus (PCR) Negative Bordetella parapertussis DNA (PCR) Negative Chlamydia pneumoniae DNA (PCR) Negative Coronavirus Type OC43 (PCR) Negative Coronavirus Type HKU1 (PCR) Negative Coronavirus Type 229E (PCR) Negative Coronavirus Type NL63 (PCR) Negative Human Metapneumovirus (PCR) Negative Influenza Virus Type A (PCR) Negative Influenza Virus Type B (PCR) Negative Mycoplasma pneumoniae (PCR) Negative Parainfluenza Type 1 (PCR) Negative Parainfluenza Type 2 (PCR) Negative Parainfluenza Type 3 (PCR) Negative Parainfluenza Type 4 (PCR) Negative Respiratory Syncytial Virus (PCR) Negative Enterovirus/Rhinovirus (PCR) Negative Medications Current ED Medications Albuterol/ Ipratropium 3 ml 3 ml O ONCE AEROSOL Last administered on 12:46; Start 05/22/16 at 12:30; Stop 05/22/16 at 12:32; Status DC Sodium Chloride (NS) 500 ml @ 0 mls/hr Q0M ONCE IV Last administered on 12:46; Start 05/22/16 at 12:30; Stop 05/22/16 at 12:32; Status DC Progress Progress Patient requesting UA. CBC and CMP noncontributory D-dimer <150 Resp PCR panel did not identify any organism CXR normal Patient reports feeling better after fluids. I discussed patient's labs and answer questions. Discussed with patient that she has bronchitis. Coughing is irritating upper airway. Patient instructed to continue prednisone as prescribed and start Tessalon Perles three times daily. Patient verbalized understanding of treatment plan, follow-up with PCP and return precautions. Xray Xray : Xray: CXR PA/Lat Interpretation: Normal (no acute cardiopulmonary findigns), Reviewed Written Report JERRY BELCHER APRN May 22, 2016 12:20
--- OUTSIDE RECORDS SUMMARY | 2016-05-22 12:26 | XMS REPORT | Continuity of Care Document ---
Author Author [facility] Organization [facility] Address Unknown Phone Unavailable Support Name Relationship Address Phone DORA HILL DO Caregiver [facility] [address] [place] [address] [phone] ABBY HUTCHISON MD Caregiver [address] [place] [address] [place] [phone] [address] [place] Next Of Kin [address] [place] [address] Insurance Providers Payer Name Policy Number Subscriber Name Relationship Medicare [id number] Erma Koenig 18 Self [facility] [id number] Erma Koenig 18 Self Advance Directives Directive [...] Carbonate/Simethicone 1 Tab.chew PO NEEDED 07/16/1010/30 Discontinued Eskxw-O-Tfullbiqsaozm 1 Tab PO NEEDED 07/16/10 10/30/12 Discontinued [...] F (96.8 - 99.1) Temperature (Calculated Celsius) 36.87991 degrees C (36.0 - 37.3) Pulse Rate [...] Body Fluid RBC September 30, 2013 2:00pm 47468 /MM3 - Body Fluid Total Nucleated Cells [...] - Crystal Exam, Synovial Fluid performed at [facility], [address] [facility],[place] [address] Rheumatologist Vargas Card MD Total Bilirubin April 22, [...] specimen been collected/ obtained? Y Urine Specific [place] July 16, 2010 8:00am 1.015 - Has [...] 2013 4:50pm Name: ERMA KOENIG Unit #: [id number] : 1945 Sex: F Loc / Svc: ED DOS: 04/22/14 Signed Report #: [id number] DIAGNOSTIC IMAGING REPORT TYPE OF EXAM: RIBS [...] Encounters Encounter Location Date/Time Departed Emergency Room [facility] 04/22/14 12:56pm Recent Diagnosis
--- OUTSIDE RECORDS SUMMARY | 2016-05-22 12:26 | XMS REPORT | Continuity of Care Document ---
Author Author [facility] Organization [facility] Address Unknown Phone Unavailable Support Name Relationship Address Phone YELENA GLEZ MD Caregiver [facility] [address] [place] [address] DORA HILL DO Caregiver [facility] [address] [place] [phone] CELESTE [place]ST Next Of Kin [address] [place] [address] Insurance Providers Payer Name Policy Number Subscriber Name Relationship Medicare [id number] Erma Koenig 19 Self [facility] [id number] Erma Koenig 18 Self Advance Directives Directive [...] Carbonate/Simethicone 1 Tab.chew PO NEEDED 07/16/1010/30 Discontinued Svoqs-K-Vxcuqioktaqzo 1 Tab PO NEEDED 07/16/10 10/30/12 Discontinued [...] F (96.8 - 99.1) Temperature (Calculated Celsius) 36.11191 degrees C (36.0 - 37.3) Temperature Source [...] 06, 2013 8:45pm LAB TEST FORM REQUEST [id number] - Lymphocytes # (Auto) September 17, 2013 [...] specimen been collected/ obtained? Y Urine Specific [place] July 16, 2010 8:00am 1.015 - Has [...] MD Encounters Encounter Location Date/Time Registered Clinic [facility] 09/04/13 11:18am
[2016-05-22] MEDS ORDERED: NORMAL SALINE 500 ML IV ONE (12:30)
[2016-05-22] MEDS ORDERED: ALBUTEROL/IPRATROPIUM INHAL. 2.5mg-0.5mg/3ml Neb. AEROSOL ONE (12:30)
[2016-05-22] MEDS ORDERED: PRED20TA PO (12:36)
[2016-05-22] MEDS ORDERED: ACET-62 PO (12:39)
[2016-05-22 12:40] LABS: HCT - HEMATOCRIT 38.6 % (36-46); HGB - HEMOGLOBIN 12.5 GM/DL (12-16); MEAN CORPUSCULAR HGB 32.6 UUG (26-34); MEAN CORPUSCULAR HGB CONC(MCHC 32.4 GM/DL (31-37); MEAN CORPUSCULAR VOLUME 100.5 UM3 (80-100); MEAN PLATELET VOLUME 9.2 UM3 (9.4-12.4); RED BLOOD COUNT 3.84 M/MM3 (4.00-5.20); WBC - WHITE BLOOD COUNT 7.8 T/MM3 (4.5-11.0)
[2016-05-22 12:52] LABS: ALBUMIN 4.4 G/DL (3.5-5.0); ALBUMIN/GLOBULIN RATIO 1.5 RATIO (1.1-2.2); ALKALINE PHOSPHATASE 71 U/L (38-126); ALT (SGPT) 35 U/L (9-52); ANION GAP 9 MEQ/L (5-15); AST (SGOT) 26 U/L (14-36); BUN/CREATININE RATIO 26 RATIO (6-26); CALCIUM 9.7 MG/DL (8.4-10.2); CHLORIDE 105 MEQ/L (98-107); CO2 - CARBON DIOXIDE 26 MEQ/L (22-30); CREATININE 0.8 MG/DL (0.7-1.2); GLOMERULAR FILTRATION RATE 71; GLUCOSE 147 MG/DL (65-110); POTASSIUM 4.3 MEQ/L (3.6-5); SODIUM 140 MEQ/L (134-144); TOTAL PROTEIN 7.4 G/DL (6.3-8.2)
[2016-05-22 13:00] LABS: LYMPHOCYTES # (MANUAL) 0.3 T/MM3 (1-4.8); MONOCYTES # (MANUAL) 0.3 T/MM3 (0-0.8); NEUTROPHILS #(MANUAL)-ABSOLUTE 7.2 T/MM3 (1.8-7.7); TOTAL CELLS COUNTED 100 %
--- NOTE | 2016-05-22 13:42 | DI ---
INDICATION: ITS.REASON: cough for 10 days PROCEDURE: CHEST 2-VIEWS UPRIGHT (PA \T\ LAT) Encounter: Initial COMPARISON: March 21, 2015 FINDINGS: Stable scarring in the right middle lobe. The lungs are otherwise clear without evidence of focal abnormal airspace opacity. There is no pleural effusion or pneumothorax. The heart size, mediastinal contours and pulmonary vascularity are within normal limits. There is no significant skeletal abnormality. IMPRESSION: No acute cardiopulmonary disease. .
[2016-05-22 14:24] LABS: BLOOD, URINE TRACE-LYSED (NEGATIVE); COLOR,URINE YELLOW (YELLOW); LEUKOCYTE ESTERASE ,URINE NEGATIVE (NEGATIVE); NITRITE,URINE NEGATIVE (NEGATIVE); UROBILINOGEN,URINE 0.2 EU/DL (NORMAL)
[2016-05-22] MEDS ORDERED: BENZ200C36 PO (14:28)
[2016-05-22 14:41] VITALS: BP 169/82; PULSE 78; RESP 16; TEMP 97.9; O2SAT 95
== END 2016-05-22 14:41 | disposition home or self-care (01) ==
LOC: ED 11:40
DX: J40 Bronchitis, not specified as acute or chronic (principal); Z87.891 Personal history of nicotine dependence
CPT/HCPCS: 36000; 80053; 81003; 85025; 85379; 87486; 87581; 87633; 87798; 94640